=== PATIENT | female | born 1985 | race Caucasian/White ===

== ENCOUNTER 2022-11-25 13:13 | Emergency (ER) | payer BC, SELFPAY ==
[2022-11-25 13:21] VITALS: BP 106/69; PULSE 100; RESP 18; TEMP 36.6; O2SAT 99; BMI 28.3
--- NOTE | 2022-11-25 13:28 | ED_ITS ---
HPI - Allergic Reaction General Time Seen by Provider: 13:28 Date Seen: 11/25/22 Chief complaint: Allergic Reaction Stated complaint: Bee sting, admin'd epi-pen Time Seen by Provider: 11/25/22 13:16 Source: patient and RN notes reviewed Mode of arrival: ambulatory Limitations: no limitations History of Present Illness HPI narrative: Patient is a 37-year-old female that was bit in the left lower leg by a a wasps about 12:30 p.m.. She has had reactions to bees, wasps, hornets. She states the only 1 that she does not react to is actually honey bees. Right away she started feeling her throat was tightening, felt lightheaded and nauseated. She did not note any rash, no oral pharyngeal swelling but throat felt tight. She took her EpiPen immediately and symptoms have abated. Besides having the area where she was stung on the leg being a bit painful, she notes no systemic symptoms. The last time she used an EpiPen was probably about 3 years ago. MD complaint: allergic reaction Onset (ago): hour(s) (Happened about 1 hour prior to presentation.) Related Data Home Medications Medication Instructions Recorded Confirmed albuterol sulfate 90 mcg/actuation 1 - 2 puff inhalation Q4H PRN 11/25/22 11/25/22 aerosol inhaler (Ventolin HFA) wheezing epinephrine 0.3 mg/0.3 mL 0.3 mg IM PRN allergies 11/25/22 11/25/22 injection, auto-injector norelgestromin 150 mcg-e.estradiol 1 patch topical 11/25/22 35 mcg/24 hr weekly transderm patch (Xulane) sertraline 100 mg tablet 100 mg PO DAILY 11/25/22 11/25/22 Previous Rx's Medication Instructions Recorded prednisone 20 mg tablet 20 mg PO BID #4 tabs 11/25/22 Allergies Allergy/AdvReac Type Severity Reaction Status Date / Time cefaclor [From [facility]] Allergy Verified 11/25/22 13:20 venom-honey bee Allergy Verified 11/25/22 13:20 Review of Systems Status of ROS Reports: 6 or more systems reviewed and unremarkable except as noted in History and below Exam Const: Vital Signs, click to edit/add: Vital Signs - 24 hr 11/25/22 13:21 11/25/22 13:34 Temperature 97.9 F Pulse Rate [Right Pulse Oximeter] 100 Respiratory Rate 18 Blood Pressure [Ri ght Upper Arm] 106/69 Pulse Oximetry 99 99 Oxygen Delivery Me thod Room Air Patient is alert interactive no apparent distress, able speak in complete sentences skin visualized without any rash. Pupils are equal round reactive, sclerae clear. Face is atraumatic, lips are normal, tongue normal, normal oral pharyngeal airway. Speech is normal, no hoarseness. Neck is supple without masses. Lungs are clear, good air entry, no wheezing or crackles, no tachypnea. CV regular rate and rhythm no murmur. Abdomen is soft, nontender, nondistended. Documenting provider has reviewed patient's vital signs: yes Course Course Hospital Course: Patient will be monitored on pulse oximetry for at least the next lower, given that will be a to our time frame from taking the EpiPen. Will give her dose of oral prednisone 40 mg, 10 mg oral Zyrtec, dose of Pepcid and observe on pulse oximetry. Consider further medications for rebound issues. Will get ice pack on the area of the sting. Reevaluation(s) Time of Reevaluation #1: 14:07 Reevaluation #1: Patient remains stable, no acute symptoms have developed. Time of Reevaluation #2: 14:46 Reevaluation #2: Patient continues to be stable without any return of symptoms. Did discuss rebound reactions. She is comfortable discharging at this time and does understand the possibility. She reassures me that she will return if there is any concern. Vital Signs Vital signs: Initial Vital Signs Temperature 97.9 F 11/25/22 13:21 Temperature Source Temporal Artery Scan 11/25/22 13:21 Pulse Rate 100 11/25/22 13:21 Respiratory Rate 18 11/25/22 13:21 Blood Pressure 106/69 11/25/22 13:21 Blood Pressure Mean 81 11/25/22 13:21 Blood Pressure Position Sitting 11/25/22 13:21 Pulse Oximetry 99 11/25/22 13:21 Oxygen Delivery Method Room Air 11/25/22 13:21 Vital Signs Temperature 97.9 F 11/25/22 13:21 Pulse Rate 100 11/25/22 13:21 Respiratory Rate 18 11/25/22 13:21 Blood Pressure 106/69 11/25/22 13:21 Pulse Oximetry 99 11/25/22 13:21 Oxygen Delivery Method Room Air 11/25/22 13:21 Temperature 97.9 F 11/25/22 13:21 Pulse Rate 100 11/25/22 13:21 Respiratory Rate 18 11/25/22 13:21 Blood Pressure 106/69 11/25/22 13:21 Pulse Oximetry 99 11/25/22 13:34 Oxygen Delivery Method Room Air 11/25/22 13:21 Critical Care Time Critical Care Time Critical Care Time: No Discharge Plan Discharge Clinical Impression: Allergic reaction to hymenoptera venom Patient Disposition: Home, Self-Care Condition: Stable Instructions: Insect Bite or Sting (ED), Anaphylaxis (ED) Additional Instructions: Make sure you get your EpiPen refilled. Continue with prednisone for 2 more days, next dose due tomorrow morning. Recommend daily Zyrtec or Claritin for the next 3-5 days. Can use [id number] Benadryl topical or oral as needed for symptoms. Recommend using ice packs 20 minutes on with 10 minutes of rest as much as you are able to until this bug bite area is resolved. The ice will help minimize pain and swelling. If you have any return of any systemic symptoms due to your allergy, do need to be emergently re-evaluated; call 911 if need be and re-dose EpiPen if needed as well. Activity Level: Activity as Tolerated Prescriptions: New prednisone 20 mg tablet 20 mg PO BID Qty: 4 0RF No Action sertraline 100 mg tablet 100 mg PO DAILY epinephrine 0.3 mg/0.3 mL auto-injector 0.3 mg IM PRN albuterol sulfate [Ventolin HFA] 90 mcg/actuation HFA aerosol inhaler 1 - 2 puff INHALATION Q4H PRN (Reason: wheezing) Xulane 150-35 mcg/24 hr patch weekly 1 patch topical Follow Up/Referrals: Elida Smyth MD [Primary Care Provider] - Stand Alone Forms: Trip[employer] Info Instructions
[2022-11-25 13:34] VITALS: O2SAT 99
[2022-11-25] MEDS: FAMOTIDINE 20 MG TABLET PO (13:47)
[2022-11-25] MEDS: CETIRIZINE HCL 10 MG TABLET PO (13:47)
[2022-11-25] MEDS: predniSONE 10 MG TABLET 40 MG PO (13:47)
[2022-11-25 14:55] VITALS: PULSE 78; O2SAT 99
== END 2022-11-25 15:03 | disposition home or self-care (01) ==
PROVIDERS: Emergency Provider Family Medicine; PCP Family Medicine
DX: T63.441A Toxic effect of venom of bees, accidental (unintentional), initial encounter (principal)
CPT/HCPCS: 94761; 99283; A9270; J7512